=== PATIENT | male | born 1950 | race Caucasian/White ===

== ENCOUNTER 2025-06-05 06:16 | Day surgery (SDC) | payer OTHER, SELFPAY | END 2025-06-05 14:28 | disposition home or self-care (01) | LOC: GI 06:16 | PROVIDERS: ATTENDING PHYSICIAN Surgery | DX: Z12.11 Encounter for screening for malignant neoplasm of colon (principal); K57.30 Diverticulosis of large intestine without perforation or abscess without bleeding; D12.3 Benign neoplasm of transverse colon; Z86.0100 Personal history of colon polyps, unspecified | CPT/HCPCS: 45380; 88305 ==